=== PATIENT | male | born 1970 | race Caucasian/White ===

== ENCOUNTER 2017-07-31 13:30 | Outpatient (RCR) | payer MEDICAID, SELFPAY | END 2017-07-31 13:31 | disposition home or self-care (01) | LOC: PT 13:30 | PROVIDERS: Family Provider Physician Assistant; PCP Physician Assistant; Visit Provider Orthopaedic Surgery Adult Reconstructive Orthopaedic Surgery | DX: M50.30 Other cervical disc degeneration, unspecified cervical region (principal) | CPT/HCPCS: 97010; 97012; 97014; 97035; 97110; 97164; G0283 ==

== ENCOUNTER → 2021-09-22 13:58 | Outpatient (CLI) | payer MEDICAID, SELFPAY ==
[2021-09-22 14:02] LABS: MANUAL DIFFERENTIAL MANUAL DIFFERENTIAL (MANUAL DIFF)
[2021-09-22 14:27] LABS: Basophils # 0.1 K/mm3 (0-0.2); Eosinophils # 0.2 K/mm3 (0.0-0.4); Hematocrit 52.2 % (42.0-52.0); Hemoglobin 17.5 g/dL (14.1-18.0); Lymphocytes # 1.2 K/mm3 (0.7-4.5); Lymphocytes % 16.9 % (10-50); Mean Corpuscular HGB Conc 33.4 g/dL (31.8-35.4); Mean Corpuscular Hemoglobin 30.9 pg (27.0-31.2); Mean Corpuscular Volume 92.4 fl (80-94); Mean Platelet Volume 7.4 fl (7.4-10.4); Monocytes # 0.6 K/mm3 (0.1-1.0); Neutrophils # 4.8 K/mm3 (1.8-7.8); Neutrophils % 70.1 % (37.0-80.0); Platelet Count 270 K/mm3 (142-424); Red Blood Count 5.65 M/mm3 (4.60-6.20); Red Cell Distribution Width 13.3 % (11.5-17.5); White Blood Count 6.9 K/mm3 (4.8-10.8)
[2021-09-22 15:34] LABS: Anion Gap 11.1 mEq/L (5-15); Blood Urea Nitrogen 19 mg/dl (9-20); Calcium 8.8 mg/dl (8.4-10.2); Carbon Dioxide 28 mmol/L (22.0-30.0); Chloride 101 mmol/L (98-107); Estimated Glomerular Filt Rate 78 ml/min (>60); GFR (African American) 95 ML/MIN (>60); Glucose 125 mg/dl (74-100); Potassium 3.1 mmoL/L (3.5-5.1); Sodium 137 mmol/L (136-145)
[2021-09-22 16:18] LABS: Eosinophils % 4 % (0-3); Lymphocytes % 15 % (10-50); Monocytes % 9 % (2-9); Neutrophils % 72 % (42-76); Platelet Estimate Normal; Total Cells Counted 100
== END ==
PROVIDERS: PCP Nurse Practitioner Family; Visit Provider Surgery
DX: Z01.812 Encounter for preprocedural laboratory examination (principal); Z11.52 Encounter for screening for COVID-19; K40.90 Unilateral inguinal hernia, without obstruction or gangrene, not specified as recurrent
CPT/HCPCS: 36415; 80048; 85007; 85014; 85018; 85048; 85049; C9803; U0003; U0005

== ENCOUNTER 2021-09-24 07:24 | Day surgery (SDC) | payer MEDICAID, SELFPAY ==
[2021-09-21 16:22] VITALS: BMI 27.2
[2021-09-24] VITALS (12 sets, daily range): BP systolic 92–144; BP diastolic 53–87; PULSE 61–74; RESP 12–18; TEMP 36.3–43; O2SAT 94–100
--- NOTE | 2021-09-24 08:11 | HMH.ANESCL ---
[facility] Anesthesia Checklist - Patient Identification Patient Identification: Arm Band - Structural Data Admitted From: Home Planned Operative Procedure/s: Right Inguinal Hernia Repair Consent for Planned Operative Procedure(s) Verified: Yes Verified Documents: Surgical Consent, History and Physical - NPO Status Verified Time NPO: 00:00 - Additional verifications Anesthesia Reactions: No Hx Blood Transfusions: No Blood Transfusion Reaction: No - Airway Assessment C-Spine Mobility Assessed: Yes (mp2) TMJ Mobility Assessed: Yes Dentition: Good Dentition - Neurological Assessment Level of Consciousness: Awake, Alert - Anesthesia Plan Anesthesia Risk discussed: Yes Anesthesia Plan: Verified ASA Class: II Anesthesia Type: General [facility] History I have reviewed the patient's past medical history: Yes Medical History: Reports:: Chronic Obstructive Pulmonary Disease (COPD), Gastroesophageal Reflux Disease(GERD), Hyperlipidemia, Hypertension Denies:: Cancer, Diabetes Mellitus Type 1, Diabetes Mellitus Type 2, MRSA, Seizures *Have you ever received a pneumonia vaccine?: No *Have you received a flu vaccine this season?: Yes Other Medical History: Denies: Blood Transfusion Reaction Anesthesia experience/problems:: nac Other Surgeries: Yes: Appendectomy Amputation: No - *Social History Last grade of school completed: High school graduate Smoking Status: Former smoker Tobacco Type: cigarettes # Packs/Day (cigarettes): 1 Alcohol Intake: never Substance Use Type: marijuana *Occupational Status:: employed Housing: house Household Members: spouse *Travel in the last 8 weeks: None Family Hx:: No significant family history
--- NOTE | 2021-09-24 10:57 | HMH.OPNOTE ---
Date of procedure: 09/24/21 Pre-op Diagnosis:: Right inguinal hernia Post-op Diagnosis:: Same Procedure performed:: Open right inguinal hernia repair with placement of Bard prefix mesh Surgeon:: Rodolfo Aquino MD CRITICAL CARE PARAMEDIC:: Bere Read Anesthesia: GETA Estimated blood loss (mL): 10 Clinical Note:: Patient is a very pleasant 51-year-old from [place]. 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 He is referred by Tashia Becker for right inguinal hernia. Patient states that he was working tearing out a bathtub. He was doing some straining and lifting. He felt some discomfort and uncomfortable sensation in the right groin area. He noticed a swelling. The area was markedly sore to touch. He contacted his primary care provider and was sent to the emergency department at [facility] where he was seen on 09/03/2021. Comprehensive work-up included CT scan as well as scrotal ultrasound. Scrotal ultrasound reveals no evidence of any rupture or torsion. Nonspecific, echogenic 2 mm focus in the right testicle. Continued follow-up is recommended. Consultation with urology may be of benefit. CT scan of the abdomen and pelvis revealed chronic changes and a small fat-containing right inguinal hernia. Patient had previously had regular urologist in [place] but he is no longer available. He is undergoing establishment with new urologist. He states that he occasionally has symptoms described as shooting pain with palpation of certain area of the right testicle. He has significantly ongoing right inguinal pain and discomfort. I spent a good deal of time the patient discussing the nature of his problem. He does have a small hernia on the right side. I detect no hernia on the left side but he does have some mild tenderness. Due to the unilateral nature feel that open right inguinal hernia repair would be reasonable. Laparoscopic repair would be rather difficult and possibly impossible due to previous appendectomy as a child. He wished to pursue surgery as soon as possible. Plan for open right inguinal hernia repair. I explained to him the nature and details of the proposed procedure along with the associated risks and expected outcome. He understands and agrees to proceed. Operative findings:: Patient had a small to moderate indirect hernia with herniated fatty tissues from the internal ring down to the testicle. Dissection required delivery of the testicle into the wound and there was evidence of some scar tissue along the vas likely from previous vasectomy which would correspond with the finding on scrotal ultrasound. Operative note:: Patient was taken to the operating room. He was positioned in supine position. General anesthesia was induced via endotracheal tube. Mcadams catheter was placed. Perineum and lower abdomen were prepped and draped in the standard surgical fashion. Oblique skin incision was made in the right inguinal area superior to landmarks identifying the inguinal ligament. Dissection was carried down through subcutaneous tissues. Je's fascia was incised. External oblique muscle was cleaned free of extraneous tissue. Extra oblique muscle was opened along the length of its fibers. Exposure was achieved. Underlying cord structures were identified. Cord was dissected free from the floor the inguinal canal and encircled with a [place] drain. Please note that the ilioinguinal nerve was preserved. Dissection was carried out the cord. There was some herniated fatty tissue as a small to moderate indirect hernia. This was dissected free from the cord structures. This actually traversed down to the testicle. In order to dissected this free dissection was carried down to essentially the testicle. There was noted to be some scar tissue along the vas deferens distally which would correspond with the scrotal ultrasound finding at outside facility. Decision was made for repair with hernia onlay mesh without plug as the internal def
--- NOTE | 2021-09-24 11:04 | HMH.ANESI ---
[facility] Anesthesia Record Part I Intake, IV Amount: 1,000 Estimated blood loss (mL): 50 Urine output (mL): 150 Blood Pressure: 107/61 SaO2: 95 Pulse Rate: 74 Respiratory Rate: 12 Temperature: 97.4 F Patient is:: Drowsy, Oral/Nasal airway Stable to PACU at:: 11:02
[2021-09-24 20:08] LABS: Microscopic,Cath URINE MICROSCOPIC (MICROSCOPIC)
[2021-09-24 20:41] LABS: Appearance,Urine/Cath CLEAR (Clear); Bilirubin,Cath Negative (Negative); Blood, Urine/Cath TRACE-I (Negative); Color,Urine/Cath YELLOW (Yellow); Glucose,Urine/Cath (UA) Negative (Negative); Ketones,Urine/Cath Negative (Negative); Leukocyte Esterase,Cath Negative (Negative); Nitrate,Cath Negative (Negative); Protein,Urine/Cath Negative (Negative)
[2021-09-24 20:59] LABS: Bacteria,Urine/Cath TRACE /lpf; RBC,Urine/Cath Occasional # /hpf (0-3); WBC,Urine/Cath Occasional #/hpf (0-3)
--- NOTE | 2021-09-25 07:16 | P.PN_ITS ---
[facility] Anesthesia Record Part II Discharge Time: 11:32 Destination: Surgical Day Care (OP Surgery) PACU nurse assessment reviewed?: Yes Patient Condition:: Good Anesthesia Complications:: None Swallowing reflex intact?: Yes Cyanosis?: No Blood Pressure: 103/61 Pulse Rate: 68 Temperature: 97.4 F Mental Status: Alert & Oriented Pain level:: 0 Nausea and/or vomitting:: None Intake, IV Amount: 0
[2021-09-25 07:17] VITALS: BP 103/61; PULSE 68; TEMP 36.3
== END 2021-09-24 13:00 | disposition home or self-care (01) ==
LOC: OR 07:26
PROVIDERS: PCP Nurse Practitioner Family; Visit Provider Surgery
PROC: (CPT 49505; principal; 2021-09-24 08:45)
DX: K40.90 Unilateral inguinal hernia, without obstruction or gangrene, not specified as recurrent (principal); J44.9 Chronic obstructive pulmonary disease, unspecified; K21.9 Gastro-esophageal reflux disease without esophagitis; Z98.52 Vasectomy status; I10 Essential (primary) hypertension; Z87.891 Personal history of nicotine dependence; E78.5 Hyperlipidemia, unspecified; F12.90 Cannabis use, unspecified, uncomplicated; Z90.49 Acquired absence of other specified parts of digestive tract
CPT/HCPCS: 49505; 81001; 96374; J0131; J0330; J2405

== ENCOUNTER 2021-12-05 12:39 | Emergency (ER) | payer MEDICAID, SELFPAY ==
[2021-12-05 12:41] VITALS: BP 139/86; PULSE 74; RESP 16; TEMP 37.1; O2SAT 98; BMI 25.8
--- NOTE | 2021-12-05 12:58 | PC.NURSE ---
this RN at the bedside for IV insertion and blood collection. pt tolerated well.
--- NOTE | 2021-12-05 13:08 | PC.NURSE ---
at the bedside for eval.
[2021-12-05 13:15] LABS: Basophils # 0.1 K/mm3 (0-0.2); Basophils % 0.4 % (0.1-2.0); Chloride 96 mmol/L (98-107); Eosinophils # 0.1 K/mm3 (0.0-0.4); Eosinophils % 0.8 % (0.1-12.0); Hematocrit 53.9 % (42.0-52.0); Lymphocytes # 0.3 K/mm3 (0.7-4.5); Lymphocytes % 2.2 % (10-50); Mean Corpuscular HGB Conc 35.5 g/dL (31.8-35.4); Mean Corpuscular Hemoglobin 31.4 pg (27.0-31.2); Mean Corpuscular Volume 88.4 fl (80-94); Mean Platelet Volume 7.1 fl (7.4-10.4); Monocytes # 0.5 K/mm3 (0.1-1.0); Monocytes % 3.5 % (1.7-9.3); Neutrophils # 11.9 K/mm3 (1.8-7.8); Neutrophils % 93.2 % (37.0-80.0); Platelet Count 240 K/mm3 (142-424); Potassium 3.1 mmoL/L (3.5-5.1); Red Blood Count 6.09 M/mm3 (4.60-6.20); Red Cell Distribution Width 13.5 % (11.5-17.5); Sodium 135 mmol/L (136-145); White Blood Count 12.8 K/mm3 (4.8-10.8)
[2021-12-05 13:18] LABS: Alanine Aminotransferase 35 U/L (12-78); Albumin Level 5.1 g/dl (3.5-5.0); Albumin/Globulin Ratio 1.7 (1.1-1.8); Alkaline Phosphatase 108 U/L (38-126); Anion Gap 12.1 mEq/L (5-15); Aspartate Amino Transferase 37 U/L (17-59); Bilirubin,Total 2.1 mg/dl (0.2-1.3); Blood Urea Nitrogen 17 mg/dl (9-20); Calcium 9.4 mg/dl (8.4-10.2); Carbon Dioxide 30 mmol/L (22.0-30.0); Creatinine Clearance Estimated 100 mL/min (50-200); Estimated Glomerular Filt Rate 78 ml/min (>60); GFR (African American) 95 ML/MIN (>60); Glucose 152 mg/dl (74-100); Lactic Acid 1.6 mmol/L (0.7-2.1); Total Protein,Serum 8.1 g/dl (6.3-8.2)
[2021-12-05 13:24] LABS: MANUAL DIFFERENTIAL MANUAL DIFFERENTIAL (MANUAL DIFF)
--- NOTE | 2021-12-05 13:26 | US_ITS ---
FINAL REPORT TECHNIQUE: Ultrasound images of the testicles were obtained bilaterally. Color Doppler images were obtained. CLINICAL HISTORY: right testicle pain FINDINGS: If the right testicle measures 2.1 x 3.4 x 2.3 cm. The left testicle measures 1.8 x 3.1 x 2.4 cm. There is a moderate right hydrocele. The right epididymis is enlarged consistent with epididymitis. Arterial flow is identified bilaterally. IMPRESSION: Moderate right hydrocele. Findings consistent with right epididymitis. Reviewed, Interpreted and Dictated by Rodolfo Turner III, MD Transcribed by Zehra Ga Authenticated and [facility]
--- NOTE | 2021-12-05 13:26 | HMH.EDGENADL ---
ED Disposition Clinical Impression: Epididymitis Disposition: Home, Self-Care Condition on Discharge: Good Instructions: DI for Epididymitis Additional Instructions: You have been evaluated for lower abdominal and right scrotal pain, diagnosed with epididymitis. Please take antibiotics as prescribed. Tylenol or ibuprofen for pain. Use scrotal support, tight fitting underwear. Follow-up with your primary care doctor and your urologist. Return to the emergency department for any new or worsening symptoms Prescriptions: levoFLOXacin [Levaquin 500mg tab] 500 mg PO DAILY #10 tab Transmission Status: Received by [id number] Referrals: Charisma Becker APRN [Primary Care Provider] - Time of Disposition: 14:49 - Critical Care Critical Care Time: No Attestation: On 12/05/21, the high probability of a clinically significant, sudden or life threatening deterioration of the following system(s) required my full and direct attention, intervention and personal management. The time I documented below is in addition to time spent performing reported procedures but includes the following listed in this critical care notation. Medical Decision Making - Medical Records Medical records reviewed: Yes: I reviewed the patient's medical records. - Dyllan Inquiry Pt receiving controlled substance: No Vital Signs: 12/05/21 12:41 Temperature 98.7 F Temperature Source Oral Pulse Rate [Radial] 74 Respiratory Rate 16 Blood Pressure [Right Arm] 139/86 Blood Pressure Mean [Right Arm] 103 Blood Pressure Position [Right Arm] Sitting 02 Sat by Pulse Oximetry 98 Oxygen Delivery Method Room Air - Lab Data Lab Results 12/05/21 12:58: WBC 12.8 H, RBC 6.09, Hgb 18.8 H, Hct 53.9 H, MCV 88.4, MCH 31.4 H, MCHC 35.5 H, RDW 13.5, Plt Count 240, MPV 7.1 L, Neut % (Auto) 93.2 H, Lymph % (Auto) 2.2 L, [place] % (Auto) 3.5, Eos % (Auto) 0.8, Baso % (Auto) 0.4, Neut # (Auto) 11.9 H, Lymph # (Auto) 0.3 L, [place] # (Auto) 0.5, Eos # (Auto) 0.1, Baso # (Auto) 0.1, Total Counted 100, Neutrophils % (Manual) 92 H, Band Neutrophils % 1.0, Lymphocytes % (Manual) 5 L, Monocytes % (Manual) 1 L, Eosinophils % (Manual) 1, Platelet Estimate Normal, RBC Morphology Normal 12/05/21 12:58: Sodium 135 L, Potassium 3.1 L, Chloride 96 L, Carbon Dioxide 30, Anion Gap 12.1, BUN 17, Creatinine 1.00, Estimated Creat Clear 100, Estimated GFR 78, Est GFR ( Amer) 95, Glucose 152 H, Calcium 9.4, Total Bilirubin 2.1 H, AST 37, ALT 35, Alkaline Phosphatase 108, Total Protein 8.1, Albumin 5.1 H, Globulin 3.0, Albumin/Globulin Ratio 1.7 12/05/21 12:58: Lactate 1.6 12/05/21 14:40: Urine Color Yellow, Urine Appearance Clear, Urine pH 7.5, Ur Specific [place] 1.015, Urine Protein Negative, Urine Glucose (UA) Negative, Urine Ketones Negative, Urine Blood Negative, Urine Nitrate Negative, Urine Bilirubin Negative, Urine Urobilinogen 1.0, Ur Leukocyte Esterase Negative Result diagrams: 12/05/21 12:58 12/05/21 12:58 Orders (Tests/Meds): ED MEDICATIONS Discontinued Medications Generic Name Dose Route Start Last Admin Trade Name Freq PRN Reason Stop Dose Admin Sodium Chloride 1,000 mls @ 999 mls/hr 12/05/21 13:00 12/05/21 13:16 Sod Chlor 0.9% 1000ml Bag IV 12/05/21 14:00 999 mls/hr .Q1H1M RENNY Administration Ketorolac Tromethamine 15 mg 12/05/21 13:05 12/05/21 13:16 Ketorolac 30mg/Ml Vial IV 12/05/21 13:06 15 mg ONCE ONE Administration Morphine Sulfate 4 mg 12/05/21 13:05 12/05/21 13:16 Morphine 4mg/Ml Syringe IV 12/05/21 13:06 4 mg ONCE ONE Administration Ondansetron HCl 4 mg 12/05/21 12:52 12/05/21 13:16 Ondansetron 4mg/2ml Vial IV 12/05/21 12:53 4 mg ONCE ONE Administration ORDERS Category Date Time Status Urinalysis and Microscopic Stat Lab 12/05/21 14:40 Results - US Data US Images: Other ED US Reviewed: Yes: I have reviewed the patient's US results, I have viewed radiologist's interpretation Fin
[2021-12-05 13:34] LABS: Hemoglobin 18.8 g/dL (14.1-18.0)
--- NOTE | 2021-12-05 13:34 | PC.NURSE ---
PT TO US AT THIS TIME
[2021-12-05 14:14] LABS: Eosinophils % 1 % (0-3); Lymphocytes % 5 % (10-50); Monocytes % 1 % (2-9); Neutrophils % 92 % (42-76); Platelet Estimate Normal; RBC Morphology Normal; Total Cells Counted 100
--- NOTE | 2021-12-05 14:42 | PC.NURSE ---
UA COLLECTED AND SENT TO LAB. PT RESTING. FAMILY AT BEDSIDE. NO NEEDS AT THIS TIME
[2021-12-05 14:46] LABS: Microscopic, Urine URINE MICROSCOPIC (MICROSCOPIC)
[2021-12-05 15:08] LABS: Appearance,Urine CLEAR (Clear); Bilirubin,Urine Negative (Negative); Blood, Urine Negative (Negative); Color,Urine YELLOW (Yellow); Glucose,Urine (UA) Negative (Negative); Ketones,Urine Negative (Negative); Leukocyte Esterase,Urine Negative (Negative); Nitrate,Urine Negative (Negative); PH,Urine 7.5 (5.0-8.5); Protein,Urine Negative (Negative); Specific Gravity, Urine 1.015 (1.005-1.030)
[2021-12-05 15:36] VITALS: BP 125/78; PULSE 78; RESP 16; TEMP 36.6; O2SAT 98
== END 2021-12-05 15:41 | disposition home or self-care (01) ==
PROVIDERS: Emergency Provider Emergency Medicine; PCP Nurse Practitioner Family
DX: N45.1 Epididymitis (principal); Z79.82 Long term (current) use of aspirin; Z79.899 Other long term (current) drug therapy; Z88.1 Allergy status to other antibiotic agents; J44.9 Chronic obstructive pulmonary disease, unspecified; K21.9 Gastro-esophageal reflux disease without esophagitis; E78.5 Hyperlipidemia, unspecified; I10 Essential (primary) hypertension; Z87.891 Personal history of nicotine dependence
CPT/HCPCS: 76870; 80053; 81001; 83605; 85007; 85025; 96365; 96375; 99284; J2405

== ENCOUNTER → 2022-01-11 09:28 | Outpatient (CLI) | payer MEDICAID, SELFPAY | PROVIDERS: PCP Nurse Practitioner Family; Visit Provider Surgery | DX: M79.2 Neuralgia and neuritis, unspecified (principal) ==

== ENCOUNTER → 2022-01-17 11:54 | Outpatient (POV) | payer MEDICAID, SELFPAY ==
[2022-01-17 12:01] VITALS: BP 152/90; PULSE 75; RESP 20; BMI 25.8
--- NOTE | 2022-01-17 13:51 | HMH.PMCON ---
Assessment and Plan (1) Neuralgia of right inguinal region Status: Acute Category: Medical Code(s): M79.2 - Neuralgia and neuritis, unspecified - Assessment and plan all Dx Assessment and Plan for all problems:: Patient is about 15 weeks postop after a right inguinal hernia repair. Patient continues to have pain around his right inguinal region that radiates to his right groin and right testicle. He has been having issues with urinating. According to the patient, he is also very tender to touch around the base of his penis. We will schedule the patient for a right inguinal nerve block. I will start this patient on gabapentin 300 mg 3 times a day and provide the patient with 15 days worth of medications. Patient has been instructed to contact the clinic with any concerns before the next appointment. Dr. Hicks has reviewed this note and agrees with this plan of care. This note was dictated using voice recognition software and make contain errors or omissions. HPI - Data of Consult Patient: new to practice Consult date: 01/17/22 Requesting Physician: Maricruz Ochoa APRN - Consult Narrative Reason for consult: Right inguinal pain History of present illness: Mr. Borrero is a 51 year old male who presents today as a new patient. Patient is referred by Dr. Aquino. Thank you for the referral. Patient presents today with right inguinal pain that has been going on since his right inguinal hernia repair on 09/24/2021. He is about 15 to 16 weeks postop. He states that continues to have pain around his incision site, right groin area, right testicle and at the base of his penis. According to the patient, he is very tender to touch in these areas. He sometimes have trouble urinating because of the pain. He has been referred to Urology for further evaluation. They initially thought that this was a hydrocele but after ultrasound, this was ruled out. They also treated the patient for possible epididymitis and he has had two rounds of abx with minimal relief of symptoms. Patient continues to follow Dr. Aquino for definitive treatment later on. The patient was referred to us for an inguinal nerve block. Patient rates his pain as 10/10. He does not take anything for pain. Dyllan [id number], MEQ 0. CC: Maricruz Ochoa APRN [facility] History I have reviewed the patient's past medical history: Yes Medical History: Reports:: Chronic Obstructive Pulmonary Disease (COPD), Gastroesophageal Reflux Disease(GERD), Hyperlipidemia, Hypertension Denies:: Cancer, Diabetes Mellitus Type 1, Diabetes Mellitus Type 2, MRSA, Seizures *Have you ever received a pneumonia vaccine?: No *Have you received a flu vaccine this season?: No Other Medical History: Denies: Blood Transfusion Reaction Other Surgeries: Yes: Appendectomy, Colonoscopy, Hernia Repair Amputation: No - *Social History Smoking Status: Former smoker Tobacco Type: cigarettes # Packs/Day (cigarettes): 1 Alcohol Intake: never Substance Use Type: marijuana *Occupational Status:: other Housing: house Household Members: spouse *Travel in the last 8 weeks: None Family Hx:: No significant family history Review of Systems - Review of Systems Review of Systems: General: No recent weight changes, no fever, no sleep disturbances Respiratory: No cough, no shortness of air, no recurring pulmonary infections Cardiovascular/peripheral vascular: No chest pain, no palpitations, no edema, no shortness of breath Gastrointestinal: No new onset incontinence, normal bowel movements reported Genitourinary: Right inguinal pain Psychiatric: [Normal mood/affect] Neurological: [Denies weakness in extremities], [denies balance issues] Meds Home Medications Medication Instructions Recorded Confirmed Type amlodipine 5 mg tablet 5 mg PO DAILY tab 09/13/21 01/17/22 History atorvastatin 40 mg tablet 40 mg PO HS tab 09/13/21 01/17/22 History bisoprolol fumarate 10 mg tablet 10 mg PO DAILY tab 09/13/21 01/17/22 History
== END ==
PROVIDERS: Visit Provider Nurse Practitioner Family
DX: M79.2 Neuralgia and neuritis, unspecified (principal)
CPT/HCPCS: 99202; G0463

== ENCOUNTER 2022-01-29 09:07 | Day surgery (SDC) | payer MEDICAID, SELFPAY ==
[2022-01-29 09:13] VITALS: BP 133/88; BP 140/85; PULSE 73; PULSE 82; RESP 20; TEMP 36.6; TEMP 36.8; O2SAT 97; BMI 27.2
--- NOTE | 2022-01-29 10:49 | P.PCN_ITS ---
- Procedure Date: 01/29/22 Time: 10:49 Anesthesiologist:: Kieran Hicks MD Complications:: None Pre-procedure Diagnosis:: Ilioinguinal/iliohypogastric/genitofemoral neuralgia status post hernia repair on the right side Post-procedure Diagnosis:: Same Indications for Procedure:: The patient is a pleasant 51-year-old white male who we are treating for increasing right groin and testicle pain after right inguinal hernia repair. He may have right ilioinguinal/iliohypogastric/genitofemoral neuralgia or nerve entrapment after his hernia repair. We will do a right ilioinguinal/iliohypogas tric/genitofemoral nerve block today to see if this helps with his pain symptoms. He has been on gabapentin before and he had side effects so he did not continue. Procedure Details:: Procedure: Right ilioinguinal/real epigastric/genitofemoral nerve block. Informed consent was obtained risk and benefits of the procedure were explained to the patient. Patient was taken the procedure room. Right groin was prepped using ChloraPrep. A 25-gauge needle was used and we injected 10 mL bupivacaine 0.25% and Depo-Medrol 40 mg into the area of the right ilioinguinal/ Gastric/genitofemoral nerve. Patient tolerated procedure well with no complications. Plan and Disposition:: We will follow-up with this patient in 2 weeks. Will reevaluate symptoms at that time.
== END 2022-01-29 10:23 | disposition home or self-care (01) ==
LOC: SC.PAINP 09:08
PROVIDERS: Visit Provider Anesthesiology
DX: G58.8 Other specified mononeuropathies (principal)
CPT/HCPCS: 64425; J1040

== ENCOUNTER → 2022-03-04 11:30 | Outpatient (POV) | payer MEDICAID, SELFPAY ==
[2022-03-04 11:52] VITALS: BP 151/92; PULSE 88; RESP 18; TEMP 36.8; O2SAT 97; BMI 26.5
--- NOTE | 2022-03-04 12:03 | EXP.PAIN.SOA ---
[facility] Pain Management SOAP Note Subjective:: Patient is a pleasant 51-year-old male who presents today for follow-up of right ilioinguinal/iliohypogastric/genitofemoral nerve block on 01/29/2022. 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 Patient states he had about 50% improvement of his symptoms following this injection however it only lasted for a few hours. Today the patient rates his pain a 5 out of 10 and states the pain is in his right inguinal area radiating into his scrotum as well as now his left inguinal region. Patient states he has more swelling today than he has had even before surgery. He states this is a sharp, aching pain that is constant. Patient denies any new trauma or injury to the site. patient has tried [id number] oral medications with minimal improvement of his symptoms. He is on tizanidine 4 mg at night due to his neck pain and the patient states this does help him sleep better and decrease his symptoms at night. Patient is roughly 5 months postop from his right inguinal hernia repair. Previously the patient did complain of issues with urinating and tenderness around the base of his penis. Patient was followed by a urologist who also prescribed his testosterone therapy however patient states that he recently found out that this physician is no longer in practice. Patient was previously prescribed gabapentin 300 mg 3 times a day however the patient stated this gave a groggy, hung over feeling and upset his stomach so he is since stopped taking this medication. Patient has not been back to Dr. Aquino's office following his last visit over a month ago. Patient states his primary care provider has left the practice that they were previously at and currently he does not have anyone to give a general surgeon referral for a second opinion. His Dyllan is [phone]. It has been reviewed and appropriate. Review of Systems: General: No recent weight changes, no fever, no sleep disturbances Respiratory: No cough, no shortness of air, no recurring pulmonary infections Cardiovascular/peripheral vascular: No chest pain, no palpitations, no edema, no shortness of breath Gastrointestinal: No new onset incontinence, normal bowel movements reported Genitourinary: No new onset incontinence Musculoskeletal: Bilateral inguinal pain, scrotum pain Psychiatric: [Normal mood/affect] Neurological: [Denies weakness in extremities], [denies balance issues] Objective:: Physical Exam: General: Alert and oriented x3, no acute distress, pleasant and cooperative Lungs: Respirations even and unlabored, symmetrical chest expansion Eyes: PERRL Musculoskeletal: Flexion and extension of lumbar [spine] somewhat guarded secondary to pain, [antalgic gait noted] Neurological: Speech clear, no gross sensory deficit Assessment:: right-sided ilioinguinal/iliohypogastric/genitofemoral neuralgia status post hernia repair, left inguinal pain Plan:: Patient continues to experiencing worsening pain around his right inguinal hernia scar and scrotum as well as left-sided inguinal pain. Patient has edema and swelling to the site with limited range of motion of his lumbar spine due to the pain. I will prescribe the patient a compounding cream at today's visit. I will also send in a referral to Dr. Sky Moore at [facility] for his bilateral inguinal and scrotum pain. Patient will return to clinic in 1 month for follow-up and reevaluation of his symptoms. Patient has been instructed to contact the clinic with any concerns before the next appointment. Dr. Hicks has reviewed this note and agrees with this plan of care. This note was dictated using voice recognition software and make contain errors or omissions. 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
== END ==
PROVIDERS: Visit Provider Nurse Practitioner Family
DX: G58.8 Other specified mononeuropathies (principal); R10.30 Lower abdominal pain, unspecified
CPT/HCPCS: 99212; G0463

== ENCOUNTER → 2022-04-01 11:09 | Outpatient (POV) | payer MEDICAID, SELFPAY ==
[2022-04-01 11:44] VITALS: BP 133/81; PULSE 76; RESP 18; TEMP 36.9; O2SAT 98; BMI 27.2
--- NOTE | 2022-04-01 16:10 | EXP.PAIN.SOA ---
[facility] Pain Management SOAP Note Subjective:: Patient is a pleasant 51-year-old male who presents today for follow-up. 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 Today the patient rates his pain a 6 out of 10. He states the pain is primarily in his right inguinal area that radiates into his scrotum and occasional left-sided inguinal pain. Patient describes this as a aching, throbbing sensation with occasional sharp pains. Patient denies any new trauma or injury. Patient is currently looking for a new urologist for issues regarding urination and tenderness around the base of his penis. He was previously followed by a urologist who prescribed his testosterone therapy however the physician is no longer in practice. Patient's also recently lost his primary care provider and is scheduling to meet with a new physician in the next couple of weeks. Patient was recently referred from our office to Dr. Sky Moore for second opinion of his hernia repair. He is did have a CT done this past Friday and will follow-up with Dr. Moore office once imaging is read. Patient is currently managed with tizanidine 4 mg at night. Patient states he feels like the muscle relaxer is no longer working and that he has built up a tolerance. Patient is also taking compounding cream that he states provides significant improvement of his symptoms. His Dyllan is [id number]. It is been reviewed and appropriate. Review of Systems: General: No recent weight changes, no fever, no sleep disturbances Respiratory: No cough, no shortness of air, no recurring pulmonary infections Cardiovascular/peripheral vascular: No chest pain, no palpitations, no edema, no shortness of breath Gastrointestinal: No new onset incontinence, normal bowel movements reported Genitourinary: No new onset incontinence Musculoskeletal: Right inguinal pain Psychiatric: [Normal mood/affect] Neurological: [Denies weakness in extremities], [denies balance issues] Objective:: Physical Exam: General: Alert and oriented x3, no acute distress, pleasant and cooperative Lungs: Respirations even and unlabored, symmetrical chest expansion Eyes: PERRL Musculoskeletal: Flexion and extension of lumbar [spine] somewhat guarded secondary to pain, [antalgic gait noted] Neurological: Speech clear, no gross sensory deficit Assessment:: 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 Patient did have limited range of motion of his lumbar spine during today's visit. I have discussed with the patient regarding having a repeat right-sided inguinal nerve block. Risk and benefits were discussed with the patient. He would like to proceed forward with this plan of care. I will order the patient a new muscle relaxer, cyclobenzaprine 10 mg at night and provide a 14-day supply of this medication. We will schedule the patient for a right sided inguinal nerve block. Patient has been instructed to contact the clinic with any concerns before the next appointment. Dr. Hicks has reviewed this note and agrees with this plan of care. This note was dictated using voice recognition software and make contain errors or omissions. 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
== END | disposition home or self-care (01) ==
PROVIDERS: Visit Provider Nurse Practitioner Family
DX: G58.8 Other specified mononeuropathies (principal); Z79.899 Other long term (current) drug therapy
CPT/HCPCS: 99212; G0463

== ENCOUNTER → 2022-04-12 13:10 | Day surgery (SDC) | payer MEDICAID, SELFPAY ==
[2022-04-12 13:28] VITALS: BP 129/85; PULSE 70; RESP 20; TEMP 36.9; O2SAT 97; BMI 27.2
== END ==
PROVIDERS: Visit Provider Anesthesiology
DX: Z53.8 Procedure and treatment not carried out for other reasons (principal)